=== PATIENT | female | born 1985 | race African-American/Black ===

== ENCOUNTER 2017-02-12 07:35 | Emergency (ER) | payer OTHER ==
[~2017-02-12] VITALS: Ht 165.1 cm; Wt 111.6 kg
[~2017-02-12 07:35] MED LIST: HYDROCODONE-AP1 EAC6 PO; IBUPROFEN 800800 MG PO; NOHOMEMEDICATIONS; PENICILLIN V P500 MG PO; ULTRAM 50MG TAB50 MG PO; VENTOLIN HFA 1818 GM INH; ZPAK PO
[2017-02-12 08:19] LABS: URINE BILIRUBIN NEGATIVE (Negative); URINE BLOOD 3+ (Negative); URINE COLOR YELLOW; URINE GLUCOSE-RANDOM* NEGATIVE (Negative); URINE KETONES TRACE (Negative); URINE LEUKOCYTES-REFLEX NEGATIVE (Negative); URINE PROTEIN (DIPSTICK) TRACE (Negative); URINE SPECIFIC GRAVITY >= 1.030 (1.003-1.035); URINE UROBILINOGEN 0.2 E.U./dl (0.2-1.0)
[2017-02-12 08:20] LABS: HEMATOCRIT 27.5 % (37.0-47.0); HEMOGLOBIN 7.7 gm/dL (12.0-15.0); LYMPHOCYTES 31.3 % (24.0-44.0); MCH 18.1 pg (26.0-34.0); MCHC 28.1 g/dL (28.0-37.0); MCV 64.4 fL (80.0-100.0); PLATELET COUNT 189 thou/uL (150-400); POLYS 59.8 % (36.0-66.0); RBC 4.27 mil/uL (4.20-5.00); RDW 26.1 % (10.5-14.5); WBC 6.9 thou/uL (4.0-11.0)
[2017-02-12 08:21] LABS: ABSOLUTE NEUTROPHILS 4.1 thou/uL (1.4-8.2); EOSINOPHILS 1.8 % (0.0-3.0); MONOCYTES 6.1 % (1.0-8.0)
[2017-02-12 08:22] LABS: MANUAL DIFF NO
[2017-02-12 08:25] LABS: ANION GAP 9 mmol/L (7-16); BUN 8 mg/dL (7-18); CALCIUM 8.7 mg/dL (8.5-10.1); CHLORIDE 106 mmol/L (98-107); CO2 24 mmol/L (21-32); CREATININE 0.8 mg/dL (0.6-1.3); GLUCOSE 118 mg/dL (70-99); POTASSIUM 4.3 mmol/L (3.5-5.1); SODIUM 139 mmol/L (136-145)
[2017-02-12 08:37] LABS: NT-PRO BRAIN NAT PEPTIDE < 5 pg/mL (<300)
[2017-02-12 08:41] LABS: SQUAMOUS >10 Many /LPF (0-3)
[2017-02-12 08:42] LABS: CASTS None Seen /LPF (None Seen); CRYSTALS None Seen /LPF (None Seen); URINE WBC-REFLEX 0-5 Rare /HPF (0-5)
[2017-02-12] MEDS ORDERED: IRON325 PO ×2 (08:50→10:41)
[2017-02-12 09:31] LABS: POLYCHROMASIA OCCASIONAL
[2017-02-12 09:32] LABS: ANISOCYTOSIS 3+; HYPOCHROMASIA 3+; MICROCYTES 3+; OVALOCYTES FEW
[2017-02-12] MEDS ORDERED: SPRINTEC1 EACH PO (10:40)
[2017-02-12 10:59] VITALS: BP 115/70
== END 2017-02-12 11:00 | disposition home or self-care (01) ==
LOC: ER 07:35
PROVIDERS: Emergency Medicine
DX: D62 Acute posthemorrhagic anemia (principal); N93.8 Other specified abnormal uterine and vaginal bleeding; F17.210 Nicotine dependence, cigarettes, uncomplicated

== ENCOUNTER 2018-09-12 08:59 | Emergency (ER) | payer OTHER ==
[~2018-09-12] VITALS: Ht 162.6 cm; Wt 108.9 kg
[~2018-09-12 08:59] MED LIST changes: +IRON325 PO; +SPRINTEC1 EACH PO
[2018-09-12] MEDS ORDERED: VENTOLIN HFA 1818 GM INH (09:15)
[2018-09-12] MEDS ORDERED: PREDNISONE 20 M20 MG PO (09:15)
[2018-09-12] MEDS ORDERED: TESSALON PERLE100 MG PO (09:15)
[2018-09-12] MEDS ORDERED: MUCINEX D TABL1 EACH PO (09:15)
== END 2018-09-12 09:26 | disposition home or self-care (01) ==
LOC: ER 08:59
DX: J40 Bronchitis, not specified as acute or chronic (principal); J06.9 Acute upper respiratory infection, unspecified

== ENCOUNTER 2020-07-13 13:20 | Emergency (ER) | payer OTHER ==
[~2020-07-13] VITALS: Ht 162.6 cm; Wt 104.3 kg
[~2020-07-13 13:20] MED LIST changes: +MUCINEX D TABL1 EACH PO; +PREDNISONE 20 M20 MG PO; +TESSALON PERLE100 MG PO
[2020-07-13] MEDS ORDERED: TRAMADOL 50 MG50 MG PO (17:14)
[2020-07-13] MEDS ORDERED: NAPROSYN500 MG PO (17:14)
[2020-07-13 17:24] VITALS: BP 137/78
== END 2020-07-13 17:24 | disposition home or self-care (01) ==
LOC: ER 13:20
DX: S39.012A Strain of muscle, fascia and tendon of lower back, initial encounter (principal); M54.6 Pain in thoracic spine; M54.2 Cervicalgia; M25.511 Pain in right shoulder; M25.512 Pain in left shoulder; J45.909 Unspecified asthma, uncomplicated; E66.01 Morbid (severe) obesity due to excess calories; Z79.899 Other long term (current) drug therapy; Z68.39 Body mass index [BMI] 39.0-39.9, adult; W10.9XXA Fall (on) (from) unspecified stairs and steps, initial encounter; Y93.89 Activity, other specified; Y92.098 Other place in other non-institutional residence as the place of occurrence of the external cause; Y99.8 Other external cause status